=== PATIENT | male | born 1950 | race African-American/Black ===

== ENCOUNTER 2017-07-14 15:09 | Emergency (ER) | payer MEDICAID ==
[~2017-07-14] VITALS: Ht 180.3 cm; Wt 80.0 kg
[~2017-07-14 15:09] MED LIST: ACET-2178 PO; FOLI-43 PO; LISI-604 PO; METO25TA6 PO; MULT-1146 PO; RISP05 PO; TRAM50TA3 PO
[2017-07-14] MEDS ORDERED: SODIUM CHLORIDE 0.9% 1,000 ML IV ONE ×2 (15:36)
[2017-07-14] MEDS ORDERED: ASPIRIN 325MG TABLET PO ONE (15:45)
[2017-07-14 16:37] LABS: EOSINOPHILS % 4.7 % (0.0-5.0); HEMATOCRIT. 30.2 % (42.0-52.0); LYMPHOCYTES % 44.2 % (20.0-50.0); MEAN CORPUSCULAR HEMOGLOBIN 27.4 pg (28.0-32.0); MEAN CORPUSCULAR VOLUME 82.5 fL (80.0-94.0); MEAN PLATELET VOLUME 8.4 fl (7.4-10.4); MONOCYTES % 9.5 % (2.0-8.0); NEUTROPHILS % 39.6 % (40.0-76.0); PLATELET 179 x1000/uL (130-400); RED BLOOD CELL COUNT 3.66 mill/uL (4.7-6.1); RED CELL DISTRIBUTION WIDTH 19.5 % (11.6-14.6)
[2017-07-14 16:41] LABS: PROTHROMBIN TIME 10.7 sec (9.4-11.6)
[2017-07-14 16:51] LABS: CARBON DIOXIDE 30 mEq/L (21-32); CHLORIDE 98 mEq/L (98-107)
[2017-07-14 16:52] LABS: TROPONIN I < 0.02 ng/mL (0.00-0.04)
[2017-07-14 16:58] LABS: ETHANOL BLOOD 360 mg/dL
[2017-07-14] MEDS ORDERED: ACETAMINOPHEN 325MG TABLET PO ONE (18:15)
[2017-07-14 18:23] LABS: *AMPHETAMINES SCREEN URINE NEGATIVE (NEGATIVE); *BARBITURATES SCREEN URINE NEGATIVE (NEGATIVE); *BENZODIAZEPINES SCREEN URINE NEGATIVE (NEGATIVE); *COCAINE SCREEN URINE NEGATIVE (NEGATIVE); CANNABINOID URINE SCREEN NEGATIVE (NEGATIVE); METHADONE URINE SCREEN NEGATIVE (NEGATIVE); OPIATES URINE SCREEN NEGATIVE (NEGATIVE); PHENCYCLIDINE URINE SCREEN NEGATIVE (NEGATIVE)
[2017-07-14 21:20] VITALS: BP 147/84
== END 2017-07-14 21:59 | disposition home or self-care (01) ==
LOC: ER 15:26
DX: R07.9 Chest pain, unspecified (principal); F10.129 Alcohol abuse with intoxication, unspecified; Y90.8 Blood alcohol level of 240 mg/100 ml or more; E16.2 Hypoglycemia, unspecified; D64.9 Anemia, unspecified; I10 Essential (primary) hypertension; J45.909 Unspecified asthma, uncomplicated
CPT/HCPCS: 36415; 71010; 80053; 80305; 82962; 83690; 84484; 85025; 85610; 93005; 96360; 96361; 99285; G0482; J7030

== ENCOUNTER 2018-06-21 13:58 | Emergency (ER) | payer MEDICARE, MEDICAID ==
[~2018-06-21] VITALS: Ht 175.3 cm; Wt 55.0 kg
[2018-06-21] MEDS ORDERED: ACETAMINOPHEN WITH CODEINE 300/30MG TABLET PO ONE (14:30)
[2018-06-21 15:38] LABS: HEMOGLOBIN. 8.7 g/dL (14.0-18.0); MEAN CORPUSCULAR VOLUME 77.7 fL (80.0-94.0); MEAN PLATELET VOLUME 8.7 fl (7.4-10.4); PLATELET 210 x1000/uL (130-400); RED BLOOD CELL COUNT 3.47 mill/uL (4.7-6.1); RED CELL DISTRIBUTION WIDTH 22.7 % (11.6-14.6)
[2018-06-21 15:41] LABS: CHLORIDE 93 mEq/L (98-107)
[2018-06-21 16:14] LABS: PLATELET ESTIMATE NORMAL
[2018-06-21 16:17] VITALS: BP 152/88
== END 2018-06-21 16:25 | disposition home or self-care (01) ==
LOC: ER 14:49
DX: M54.12 Radiculopathy, cervical region (principal); D64.9 Anemia, unspecified
CPT/HCPCS: 36415; 72125; 80053; 85025; 99285

== ENCOUNTER 2018-08-05 14:25 | Inpatient (IN) | payer MEDICARE, MEDICAID ==
[~2018-08-05] VITALS: Ht 177.8 cm; Wt 57.8 kg
[2018-08-05 15:54] LABS: HEMATOCRIT. 23.5 % (42.0-52.0); HEMOGLOBIN. 7.6 g/dL (14.0-18.0); MEAN CORPUSCULAR HEMOGLOBIN 22.8 pg (28.0-32.0); MEAN CORPUSCULAR VOLUME 70.9 fL (80.0-94.0); MEAN PLATELET VOLUME 7.4 fl (7.4-10.4); PLATELET 305 x1000/uL (130-400); RED BLOOD CELL COUNT 3.32 mill/uL (4.7-6.1); RED CELL DISTRIBUTION WIDTH 23.3 % (11.6-14.6)
[2018-08-05 15:59] LABS: CHLORIDE 84 mEq/L (98-107)
[2018-08-05 16:03] LABS: PARTIAL THROMBOPLASTIN TIME 29.7 sec (23.4-31.0); PROTHROMBIN TIME 10.5 sec (9.1-11.1)
[2018-08-05 16:05] LABS: PHOSPHORUS 3.3 mg/dL (2.5-4.9)
[2018-08-05 16:28] LABS: BG CARBOXYHEMOGLOBIN 0.6 % (0.5-1.5); BG DEOXYHEMOGLOBIN 4.7 % (0.0-5.0); BG FRACTION INSPIRED OXYGEN 21; BG HCO3 ACT 23.8 mmol/L (22.0-26.0); BG METHEMOGLOBIN 0.3 % (0.0-1.5); BG OXYGEN SATURATION 95.3 % (92.0-98.5); BG OXYHEMOGLOBIN 94.4 % (94.0-97.0); BG PCO2 34.5 mmHg (35.0-45.0); BG PH 7.456 (7.350-7.450); BG PO2 87.1 mmHg (75.0-100.0); BG SAMPLE SITE RIGHT BRACHIAL; BG TOTAL HEMOGLOBIN 8.2 g/dL (12.0-18.0); BG VENT MODE ROOM AIR
[2018-08-05 16:29] LABS: PLATELET ESTIMATE NORMAL; TOTAL IRON BINDING CAPACITY 388 ug/dL (250-450)
[2018-08-05] MEDS ORDERED: MAGNESIUM/ALUMINUM HYDROXIDE/SIMETHICONE 30ML UDC PO PRN (17:30)
[2018-08-05] MEDS ORDERED: ACETAMINOPHEN 650MG/20.3ML UDC GT PRN (17:30)
[2018-08-05] MEDS ORDERED: ACETAMINOPHEN 650MG SUPP PR PRN (17:30)
[2018-08-05] MEDS ORDERED: HYDROCODONE/ACETAMINOPHEN 5/325MG TABLET PO PRN (17:30)
[2018-08-05] MEDS ORDERED: ACETAMINOPHEN 325MG TABLET PO PRN (17:30)
[2018-08-05 18:00] LABS: CLARITY URINE CLOUDY (CLEAR); COLOR URINE YELLOW (YELLOW); KETONES URINE NEGATIVE (NEGATIVE); LEUKOCYTE ESTERASE URINE NEGATIVE (NEGATIVE); NITRITE URINE NEGATIVE (NEGATIVE); OCCULT BLOOD URINE NEGATIVE (NEGATIVE); PROTEIN URINE NEGATIVE (NEGATIVE); SPECIFIC GRAVITY URINE 1.006 (1.005-1.030); UROBILINOGEN URINE 0.2 E.U./dL (0.2-1.0)
[2018-08-05 18:02] LABS: FOLIC ACID (FOLATE) SERUM 13.6 ng/mL (>5.38)
[2018-08-05 18:14] LABS: *BENZODIAZEPINES SCREEN URINE NEGATIVE (NEGATIVE); *COCAINE SCREEN URINE NEGATIVE (NEGATIVE); METHADONE URINE SCREEN NEGATIVE (NEGATIVE)
[2018-08-05 18:15] LABS: *AMPHETAMINES SCREEN URINE NEGATIVE (NEGATIVE); *BARBITURATES SCREEN URINE NEGATIVE (NEGATIVE); CANNABINOID URINE SCREEN NEGATIVE (NEGATIVE); OPIATES URINE SCREEN NEGATIVE (NEGATIVE); PHENCYCLIDINE URINE SCREEN NEGATIVE (NEGATIVE)
[2018-08-05 22:49] VITALS: BP 166/70
[2018-08-05 23:28] LABS: CHLORIDE 86 mEq/L (98-107)
[2018-08-05 23:37] LABS: CREATINE KINASE 76 IU/L (39-308)
[2018-08-05 23:39] LABS: CREATINE KINASE MB FRACTION < 1.0 ng/mL (0.5-3.6)
[2018-08-06] VITALS: BP 160/72
[2018-08-06 04:00] VITALS: BP 145/76
[2018-08-06 06:47] LABS: HEMATOCRIT. 25.6 % (42.0-52.0); HEMOGLOBIN. 8.3 g/dL (14.0-18.0); MEAN PLATELET VOLUME 8.5 fl (7.4-10.4); PLATELET 307 x1000/uL (130-400); RED BLOOD CELL COUNT 3.61 mill/uL (4.7-6.1); RED CELL DISTRIBUTION WIDTH 23.4 % (11.6-14.6)
[2018-08-06 06:58] LABS: CHLORIDE 85 mEq/L (98-107)
[2018-08-06 07:24] LABS: LDL CHOLESTEROL 83 mg/dL (5-100)
[2018-08-06 07:25] LABS: CREATINE KINASE 80 IU/L (39-308); T4 FREE 1.11 ng/dL (0.76-1.46)
[2018-08-06 07:26] LABS: HDL CHOLESTEROL 51 mg/dL (40-59)
[2018-08-06 07:29] LABS: CREATINE KINASE MB FRACTION < 1.0 ng/mL (0.5-3.6)
[2018-08-06 08:00] VITALS: BP 128/68
[2018-08-06] MEDS: SODIUM CHLORIDE 0.9% 1,000 ML IV SCH ×2 (11:46→21:39)
[2018-08-06 12:00] VITALS: BP 150/70
[2018-08-06 12:52] LABS: PLATELET ESTIMATE NORMAL
[2018-08-06] MEDS ORDERED: TRAMADOL 50MG TABLET PO PRN (14:00)
[2018-08-06] MEDS: LISINOPRIL 20MG TABLET PO SCH (15:33)
[2018-08-06] MEDS: FOLIC ACID 1MG TABLET PO SCH (15:34)
[2018-08-06] MEDS: METOPROLOL TARTRATE 25MG TABLET PO SCH (15:34)
[2018-08-06 20:00] VITALS: BP 124/66
[2018-08-06] MEDS: RISPERIDONE 0.5MG TABLET PO SCH (21:43)
[2018-08-06 22:07] LABS: SODIUM URINE RANDOM 15 mEq/L
[2018-08-07] VITALS: BP 134/68
[2018-08-07 04:00] VITALS: BP 140/69
[2018-08-07] MEDS: ONDANSETRON HCL 4MG/2ML INJ IV PRN (05:09)
[2018-08-07 08:00] VITALS: BP 127/68
[2018-08-07] MEDS: SODIUM CHLORIDE 0.9% 1,000 ML IV SCH ×2 (09:18→18:23)
[2018-08-07] MEDS: FOLIC ACID 1MG TABLET PO SCH (09:20)
[2018-08-07] MEDS: METOPROLOL TARTRATE 25MG TABLET PO SCH (09:20)
[2018-08-07] MEDS: LISINOPRIL 20MG TABLET PO SCH (09:20)
[2018-08-07 10:53] LABS: HEMATOCRIT. 25.6 % (42.0-52.0); HEMOGLOBIN. 8.1 g/dL (14.0-18.0); MEAN CORPUSCULAR HEMOGLOBIN 22.7 pg (28.0-32.0); MEAN CORPUSCULAR VOLUME 71.6 fL (80.0-94.0); MEAN PLATELET VOLUME 8.5 fl (7.4-10.4); PLATELET 307 x1000/uL (130-400); RED BLOOD CELL COUNT 3.57 mill/uL (4.7-6.1); RED CELL DISTRIBUTION WIDTH 22.8 % (11.6-14.6)
[2018-08-07 11:18] LABS: CHLORIDE 95 mEq/L (98-107)
[2018-08-07 11:24] LABS: PHOSPHORUS 3.5 mg/dL (2.5-4.9)
[2018-08-07 11:28] LABS: AMYLASE 115 IU/L (25-115)
[2018-08-07 12:00] VITALS: BP 133/63
[2018-08-07 15:02] LABS: PLATELET ESTIMATE NORMAL
[2018-08-07 16:00] VITALS: BP 146/59
[2018-08-07] MEDS: RISPERIDONE 0.5MG TABLET PO SCH (20:32)
[2018-08-08] VITALS: BP 158/72
[2018-08-08 04:00] VITALS: BP 158/71
[2018-08-08] MEDS: SODIUM CHLORIDE 0.9% 1,000 ML IV SCH ×3 (04:50→20:10)
[2018-08-08 07:20] LABS: BASOPHILS % 0.7 % (0.0-2.0); EOSINOPHILS % 3.8 % (0.0-5.0); HEMATOCRIT. 22.5 % (42.0-52.0); HEMOGLOBIN. 7.2 g/dL (14.0-18.0); MEAN CORPUSCULAR HEMOGLOBIN 22.8 pg (28.0-32.0); MEAN CORPUSCULAR VOLUME 71.3 fL (80.0-94.0); MEAN PLATELET VOLUME 8.2 fl (7.4-10.4); MONOCYTES % 10.1 % (2.0-8.0); NEUTROPHILS % 62.4 % (40.0-76.0); PLATELET 278 x1000/uL (130-400); RED BLOOD CELL COUNT 3.15 mill/uL (4.7-6.1); RED CELL DISTRIBUTION WIDTH 22.5 % (11.6-14.6)
[2018-08-08 07:44] LABS: CHLORIDE 97 mEq/L (98-107)
[2018-08-08] MEDS: LISINOPRIL 20MG TABLET PO SCH (09:12)
[2018-08-08] MEDS: FOLIC ACID 1MG TABLET PO SCH (09:12)
[2018-08-08] MEDS: METOPROLOL TARTRATE 25MG TABLET PO SCH (09:12)
[2018-08-08 12:00] VITALS: BP 142/70
[2018-08-08 16:00] VITALS: BP 166/76
[2018-08-08] MEDS: DOCUSATE SODIUM 100MG CAPSULE PO SCH (17:46)
[2018-08-08] MEDS: FERROUS SULFATE 325MG TABLET PO SCH (17:46)
[2018-08-08] MEDS: ASCORBIC ACID 500 MG TABLET PO SCH ×2 (17:47→20:09)
[2018-08-08 18:20] VITALS: BP 157/77
[2018-08-08 20:00] VITALS: BP 152/73
[2018-08-08] MEDS: ONDANSETRON HCL 4MG/2ML INJ IV PRN (20:09)
[2018-08-08] MEDS: RISPERIDONE 0.5MG TABLET PO SCH (20:09)
[2018-08-09] VITALS (9 sets, daily range): BP systolic 134–157; BP diastolic 67–78
[2018-08-09 07:44] LABS: HEMATOCRIT. 21.9 % (42.0-52.0); MEAN CORPUSCULAR HEMOGLOBIN 22.5 pg (28.0-32.0); MEAN CORPUSCULAR VOLUME 70.6 fL (80.0-94.0); MEAN PLATELET VOLUME 8.6 fl (7.4-10.4); PLATELET 252 x1000/uL (130-400); RED CELL DISTRIBUTION WIDTH 22.5 % (11.6-14.6)
[2018-08-09 07:55] LABS: CHLORIDE 93 mEq/L (98-107)
[2018-08-09] MEDS: FERROUS SULFATE 325MG TABLET PO SCH ×3 (08:59→17:04)
[2018-08-09] MEDS: METOPROLOL TARTRATE 25MG TABLET PO SCH (09:00)
[2018-08-09] MEDS: FOLIC ACID 1MG TABLET PO SCH (09:00)
[2018-08-09] MEDS: DOCUSATE SODIUM 100MG CAPSULE PO SCH (09:00)
[2018-08-09] MEDS: ASCORBIC ACID 500 MG TABLET PO SCH ×2 (09:00→20:54)
[2018-08-09] MEDS: LISINOPRIL 20MG TABLET PO SCH (09:00)
[2018-08-09] MEDS: DEMECLOCYCLINE HCL 300MG TABLET PO SCH ×2 (12:32→20:54)
[2018-08-09 12:58] LABS: PLATELET ESTIMATE NORMAL
[2018-08-09] MEDS: RISPERIDONE 0.5MG TABLET PO SCH (20:54)
[2018-08-09] MEDS: PANTOPRAZOLE SODIUM 40 MG/VIAL IV SCH (20:54)
[2018-08-10] VITALS (9 sets, daily range): BP systolic 132–157; BP diastolic 64–82
[2018-08-10 07:19] LABS: INR 1.1; PARTIAL THROMBOPLASTIN TIME 31.3 sec (23.4-31.0); PROTHROMBIN TIME 11.3 sec (9.1-11.1)
[2018-08-10 07:33] LABS: HEMATOCRIT. 24.6 % (42.0-52.0); HEMOGLOBIN. 8.2 g/dL (14.0-18.0); MEAN CORPUSCULAR HEMOGLOBIN 23.9 pg (28.0-32.0); MEAN CORPUSCULAR VOLUME 71.7 fL (80.0-94.0); MEAN PLATELET VOLUME 9.4 fl (7.4-10.4); PLATELET 231 x1000/uL (130-400); RED BLOOD CELL COUNT 3.44 mill/uL (4.7-6.1); RED CELL DISTRIBUTION WIDTH 22.5 % (11.6-14.6)
[2018-08-10 08:48] LABS: CHLORIDE 92 mEq/L (98-107)
[2018-08-10 08:56] LABS: AMYLASE 88 IU/L (25-115)
[2018-08-10 08:59] LABS: PHOSPHORUS 3.3 mg/dL (2.5-4.9)
[2018-08-10] MEDS: PANTOPRAZOLE SODIUM 40 MG/VIAL IV SCH ×2 (09:01→21:37)
[2018-08-10] MEDS: METOPROLOL TARTRATE 25MG TABLET PO SCH (09:01)
[2018-08-10] MEDS: FERROUS SULFATE 325MG TABLET PO SCH ×3 (09:01→17:49)
[2018-08-10] MEDS: LISINOPRIL 20MG TABLET PO SCH (09:01)
[2018-08-10] MEDS: DOCUSATE SODIUM 100MG CAPSULE PO SCH (09:01)
[2018-08-10] MEDS: FOLIC ACID 1MG TABLET PO SCH (09:01)
[2018-08-10] MEDS: DEMECLOCYCLINE HCL 300MG TABLET PO SCH ×2 (09:01→21:37)
[2018-08-10] MEDS: ASCORBIC ACID 500 MG TABLET PO SCH ×2 (09:03→21:37)
[2018-08-10] MEDS: SODIUM CHLORIDE 1000MG TABLET PO SCH ×2 (10:23→21:37)
[2018-08-10 13:08] LABS: PLATELET ESTIMATE NORMAL
[2018-08-10] MEDS ORDERED: SIMETHICONE 40 MG/0.6 ML 30ML ONE (15:07)
[2018-08-10] MEDS ORDERED: FENTANYL CITRATE/PF 50MCG/ML 2ML VIAL ONE (15:42)
[2018-08-10] MEDS ORDERED: MIDAZOLAM HCL 5 MG/5 ML VIAL ONE (15:42)
[2018-08-10] MEDS ORDERED: FENTANYL CITRATE/PF 50MCG/ML 2ML VIAL IV PRN (15:43)
[2018-08-10] MEDS ORDERED: MIDAZOLAM HCL 5 MG/5 ML VIAL IV PRN (15:44)
[2018-08-10] MEDS: ONDANSETRON HCL 4MG/2ML INJ IV PRN (21:37)
[2018-08-10] MEDS: RISPERIDONE 0.5MG TABLET PO SCH (21:37)
[2018-08-11] VITALS: BP 135/73
[2018-08-11 04:00] VITALS: BP 129/84
[2018-08-11] MEDS: ONDANSETRON HCL 4MG/2ML INJ IV PRN ×2 (05:21→21:01)
[2018-08-11 07:09] LABS: HEMATOCRIT. 30.7 % (42.0-52.0); HEMOGLOBIN. 10.1 g/dL (14.0-18.0); MEAN CORPUSCULAR HEMOGLOBIN 23.9 pg (28.0-32.0); MEAN PLATELET VOLUME 9.1 fl (7.4-10.4); PLATELET 304 x1000/uL (130-400); RED BLOOD CELL COUNT 4.21 mill/uL (4.7-6.1); RED CELL DISTRIBUTION WIDTH 22.6 % (11.6-14.6)
[2018-08-11 07:18] LABS: CHLORIDE 94 mEq/L (98-107)
[2018-08-11 07:30] LABS: PHOSPHORUS 3.7 mg/dL (2.5-4.9)
[2018-08-11 08:00] VITALS: BP 139/77
[2018-08-11] MEDS: SODIUM CHLORIDE 1000MG TABLET PO SCH ×2 (08:33→20:46)
[2018-08-11] MEDS: FERROUS SULFATE 325MG TABLET PO SCH ×3 (08:33→17:48)
[2018-08-11] MEDS: ASCORBIC ACID 500 MG TABLET PO SCH ×2 (08:33→20:37)
[2018-08-11] MEDS: FOLIC ACID 1MG TABLET PO SCH (08:33)
[2018-08-11] MEDS: LISINOPRIL 20MG TABLET PO SCH (08:33)
[2018-08-11] MEDS: METOPROLOL TARTRATE 25MG TABLET PO SCH (08:34)
[2018-08-11] MEDS: DEMECLOCYCLINE HCL 300MG TABLET PO SCH (08:40)
[2018-08-11] MEDS: DOCUSATE SODIUM 100MG CAPSULE PO SCH (08:41)
[2018-08-11 12:04] VITALS: BP 133/68
[2018-08-11] MEDS ORDERED: LOPERAMIDE HCL 2MG CAPSULE PO PRN (14:30)
[2018-08-11 16:00] VITALS: BP 139/77
[2018-08-11 19:11] LABS: PLATELET ESTIMATE NORMAL
[2018-08-11 20:00] VITALS: BP 156/71
[2018-08-11] MEDS: RISPERIDONE 0.5MG TABLET PO SCH (20:37)
[2018-08-12] VITALS: BP 158/71
[2018-08-12 03:40] VITALS: BP 152/69
[2018-08-12 04:12] LABS: QFT MITOGEN VALUE 3.16 IU/mL (.); QFT TB AG MINUS NIL VALUE 0.03 IU/mL (.); QFT TB GOLD PLUS Negative (Negative); QFT TB1 AG VALUE 0.08 IU/mL (.)
[2018-08-12 07:33] LABS: HEMATOCRIT. 25.8 % (42.0-52.0); HEMOGLOBIN. 8.5 g/dL (14.0-18.0); MEAN CORPUSCULAR HEMOGLOBIN 23.8 pg (28.0-32.0); MEAN CORPUSCULAR VOLUME 72.2 fL (80.0-94.0); MEAN PLATELET VOLUME 8.4 fl (7.4-10.4); PLATELET 261 x1000/uL (130-400); RED BLOOD CELL COUNT 3.57 mill/uL (4.7-6.1); RED CELL DISTRIBUTION WIDTH 23.1 % (11.6-14.6)
[2018-08-12 08:00] VITALS: BP 150/79
[2018-08-12] MEDS: FOLIC ACID 1MG TABLET PO SCH (08:29)
[2018-08-12] MEDS: ASCORBIC ACID 500 MG TABLET PO SCH (08:29)
[2018-08-12] MEDS: SODIUM CHLORIDE 1000MG TABLET PO SCH (08:29)
[2018-08-12] MEDS: METOPROLOL TARTRATE 25MG TABLET PO SCH (08:29)
[2018-08-12] MEDS: FERROUS SULFATE 325MG TABLET PO SCH ×3 (08:29→17:16)
[2018-08-12] MEDS: LISINOPRIL 20MG TABLET PO SCH (08:31)
[2018-08-12] MEDS: DOCUSATE SODIUM 100MG CAPSULE PO SCH (08:38)
[2018-08-12 08:53] LABS: CHLORIDE 98 mEq/L (98-107)
[2018-08-12 09:02] LABS: PHOSPHORUS 3.3 mg/dL (2.5-4.9)
[2018-08-12 11:48] LABS: PLATELET ESTIMATE NORMAL
[2018-08-12 12:00] VITALS: BP 156/71
[2018-08-12 16:00] VITALS: BP 153/71
[2018-08-12 17:57] VITALS: BP 157/75
== END 2018-08-12 19:17 | disposition home or self-care (01) | DRG 374 ==
LOC: ER 15:29 → 7WST 16:11 → ENRESERV 19:57
PROVIDERS: ADMIT Internal Medicine; ATTEND Internal Medicine
PROC: 30233N1 Transfusion of Nonautologous Red Blood Cells into Peripheral Vein, Percutaneous Approach (ICD-10-PCS; 2018-08-09)
PROC: 0DB68ZX Excision of Stomach, Via Natural or Artificial Opening Endoscopic, Diagnostic (ICD-10-PCS; 2018-08-10)
PROC: 0DB48ZX Excision of Esophagogastric Junction, Via Natural or Artificial Opening Endoscopic, Diagnostic (ICD-10-PCS; principal; 2018-08-10 16:00)
DX: C16.0 Malignant neoplasm of cardia (principal); K85.90 Acute pancreatitis without necrosis or infection, unspecified; E22.2 Syndrome of inappropriate secretion of antidiuretic hormone; E44.0 Moderate protein-calorie malnutrition; N17.9 Acute kidney failure, unspecified; Z68.1 Body mass index [BMI] 19.9 or less, adult; F10.10 Alcohol abuse, uncomplicated; K29.80 Duodenitis without bleeding; J44.9 Chronic obstructive pulmonary disease, unspecified; I10 Essential (primary) hypertension; K44.9 Diaphragmatic hernia without obstruction or gangrene; K29.60 Other gastritis without bleeding; G89.29 Other chronic pain; M25.512 Pain in left shoulder; K22.2 Esophageal obstruction; J45.909 Unspecified asthma, uncomplicated; D50.0 Iron deficiency anemia secondary to blood loss (chronic); K57.30 Diverticulosis of large intestine without perforation or abscess without bleeding; K76.0 Fatty (change of) liver, not elsewhere classified; N40.0 Benign prostatic hyperplasia without lower urinary tract symptoms; Z72.0 Tobacco use; Z82.49 Family history of ischemic heart disease and other diseases of the circulatory system; Z79.899 Other long term (current) drug therapy
CPT/HCPCS: 36415; 36600; 71045; 71250; 74176; 76700; 80048; 80053; 80061; 80305; 81003; 82150; 82270; 82375; 82378; 82533; 82550; 82553; 82570; 82607; 82746; 82805; 83540; 83550; 83690; 83735; 83935; 84100; 84300; 84439; 84443; 84481; 84484; 85025; 85044; 85610; 85730; 86480; 86850; 86900; 86920; 88305; 88312; 88313; 93005; 93970; 97116; 97162; 99285; C9113; J2250; J2405; J3010; J7030; J7040; P9016

== ENCOUNTER 2018-09-29 13:04 | Inpatient (IN) | payer MEDICARE, MEDICAID ==
[~2018-09-29] VITALS: Ht 177.8 cm; Wt 56.7 kg
[2018-09-29 14:36] LABS: HEMATOCRIT. 27.9 % (42.0-52.0); MEAN CORPUSCULAR HEMOGLOBIN 24.3 pg (28.0-32.0); MEAN CORPUSCULAR VOLUME 75.1 fL (80.0-94.0); MEAN PLATELET VOLUME 8.6 fl (7.4-10.4); PLATELET 204 x1000/uL (130-400); RED BLOOD CELL COUNT 3.71 mill/uL (4.7-6.1); RED CELL DISTRIBUTION WIDTH 26.1 % (11.6-14.6)
[2018-09-29 14:42] LABS: CHLORIDE 90 mEq/L (98-107)
[2018-09-29 14:49] LABS: ETHANOL BLOOD < 10 mg/dL
[2018-09-29] MEDS ORDERED: IOHEXOL-300 100 ML BOTTLE ONE (16:07)
[2018-09-29 16:23] LABS: CLARITY URINE CLEAR (CLEAR); COLOR URINE DARK YELLOW (YELLOW); KETONES URINE TRACE (NEGATIVE); LEUKOCYTE ESTERASE URINE NEGATIVE (NEGATIVE); NITRITE URINE NEGATIVE (NEGATIVE); OCCULT BLOOD URINE NEGATIVE (NEGATIVE); PROTEIN URINE 2+ (NEGATIVE); SPECIFIC GRAVITY URINE 1.024 (1.005-1.030)
[2018-09-29 16:26] LABS: PLATELET ESTIMATE NORMAL
[2018-09-29 16:37] LABS: *AMPHETAMINES SCREEN URINE NEGATIVE (NEGATIVE); *BARBITURATES SCREEN URINE NEGATIVE (NEGATIVE); *BENZODIAZEPINES SCREEN URINE NEGATIVE (NEGATIVE); *COCAINE SCREEN URINE NEGATIVE (NEGATIVE)
[2018-09-29 16:38] LABS: CANNABINOID URINE SCREEN NEGATIVE (NEGATIVE); METHADONE URINE SCREEN NEGATIVE (NEGATIVE); OPIATES URINE SCREEN NEGATIVE (NEGATIVE); PHENCYCLIDINE URINE SCREEN NEGATIVE (NEGATIVE)
[2018-09-29 18:38] VITALS: BP 102/70
[2018-09-29] MEDS ORDERED: CLONIDINE 0.1MG TABLET PO PRN (18:45)
[2018-09-29] MEDS ORDERED: ACETAMINOPHEN 325MG TABLET PO PRN (18:45)
[2018-09-29] MEDS ORDERED: ACETAMINOPHEN 650MG/20.3ML UDC GT PRN (18:45)
[2018-09-29] MEDS ORDERED: ACETAMINOPHEN 650MG SUPP PR PRN (18:45)
[2018-09-29] MEDS ORDERED: DIPHENHYDRAMINE 50MG/ML VIAL IV PRN (18:45)
[2018-09-29] MEDS ORDERED: MAGNESIUM/ALUMINUM HYDROXIDE/SIMETHICONE 30ML UDC PO PRN (18:45)
[2018-09-29] MEDS ORDERED: NA PHOS,M-B/NA PHOS,DI-BA ENEMA 118ML PR PRN (18:45)
[2018-09-29] MEDS ORDERED: HYDROCODONE/ACETAMINOPHEN 5/325MG TABLET PO PRN (18:45)
[2018-09-29] MEDS ORDERED: IPRATROPIUM/ALBUTEROL 0.5-3(2.5)MG/3ML NEB INH PRN (18:45)
[2018-09-29] MEDS ORDERED: ONDANSETRON HCL 4MG/2ML INJ IV PRN (18:45)
[2018-09-29 20:00] VITALS: BP 120/62
[2018-09-29] MEDS ORDERED: INFLUENZA VIRUS VACCINE(AFLURIA) 0.5ML SYR IM ONE (21:00)
[2018-09-29] MEDS: SODIUM CHLORIDE 0.9% 1,000 ML IV SCH (21:08)
[2018-09-29] MEDS: ENOXAPARIN 40MG/0.4ML SYR SUBCUT SCH (21:09)
[2018-09-29] MEDS: SODIUM CHLORIDE 0.9% INJ 3ML FLUSH IVF SCH (21:09)
[2018-09-29 22:22] VITALS: BP 120/62
[2018-09-29] MEDS ORDERED: ASCO500C15 PO (23:07)
[2018-09-29] MEDS ORDERED: FERR220S12 PO (23:07)
[2018-09-29] MEDS ORDERED: TIOT18CA3 IH (23:07)
[2018-09-29] MEDS ORDERED: PROC10TA17 PO (23:07)
[2018-09-29] MEDS ORDERED: [UNRECOGNIZED DRUG - MIXTURE] PO (23:07)
[2018-09-29] MEDS ORDERED: ALBU18HF2 IH (23:07)
[2018-09-29] MEDS ORDERED: OMEP40CA34 PO (23:07)
[2018-09-29] MEDS ORDERED: ADVIR INH (23:07)
[2018-09-30] VITALS: BP 98/60
[2018-09-30 00:46] LABS: CREATINE KINASE 55 IU/L (39-308)
[2018-09-30 00:47] LABS: CREATINE KINASE MB FRACTION < 1.0 ng/mL (0.5-3.6)
[2018-09-30 04:00] VITALS: BP 104/66
[2018-09-30] MEDS: SODIUM CHLORIDE 0.9% INJ 3ML FLUSH IVF SCH ×3 (05:57→21:08)
[2018-09-30] MEDS ORDERED: DIGOXIN 500MCG/2ML AMP IV NR (07:30)
[2018-09-30 08:00] VITALS: BP_SYST 102; BP_SYST 103; BP_DIAS 61
[2018-09-30 09:44] LABS: BASOPHILS % 0.6 % (0.0-2.0); EOSINOPHILS % 0.9 % (0.0-5.0); HEMATOCRIT. 23.2 % (42.0-52.0); HEMOGLOBIN. 7.7 g/dL (14.0-18.0); MEAN CORPUSCULAR HEMOGLOBIN 24.5 pg (28.0-32.0); MEAN CORPUSCULAR VOLUME 74.2 fL (80.0-94.0); MEAN PLATELET VOLUME 9.1 fl (7.4-10.4); MONOCYTES % 8.9 % (2.0-8.0); NEUTROPHILS % 62.6 % (40.0-76.0); PLATELET 184 x1000/uL (130-400); RED BLOOD CELL COUNT 3.12 mill/uL (4.7-6.1); RED CELL DISTRIBUTION WIDTH 26.4 % (11.6-14.6)
[2018-09-30] MEDS: SODIUM CHLORIDE 0.9% 1,000 ML IV SCH (09:51)
[2018-09-30] MEDS ORDERED: DIGOXIN 125MCG TABLET PO NR (10:00)
[2018-09-30 11:55] LABS: CHLORIDE 96 mEq/L (98-107)
[2018-09-30 12:00] VITALS: BP_SYST 116; BP_SYST 124; BP_SYST 92; BP_DIAS 61; BP_DIAS 64; BP_DIAS 68
[2018-09-30 12:26] LABS: CREATINE KINASE 52 IU/L (39-308)
[2018-09-30 12:27] LABS: LDL CHOLESTEROL 86 mg/dL (5-100)
[2018-09-30 12:29] LABS: HDL CHOLESTEROL 53 mg/dL (40-59)
[2018-09-30 12:31] LABS: CREATINE KINASE MB FRACTION < 1.0 ng/mL (0.5-3.6)
[2018-09-30 16:00] VITALS: BP 117/65
[2018-09-30] MEDS: GUAIFENESIN-DM 200MG-20MG/10ML UDC PO PRN ×2 (16:08→21:07)
[2018-09-30] MEDS ORDERED: IOHEXOL-350 100 ML BOTTLE ONE (17:32)
[2018-09-30 20:00] VITALS: BP 136/74
[2018-09-30] MEDS: ENOXAPARIN 40MG/0.4ML SYR SUBCUT SCH (21:04)
[2018-10-01] VITALS (11 sets, daily range): BP systolic 112–152; BP diastolic 63–87
[2018-10-01] MEDS: SODIUM CHLORIDE 0.9% INJ 3ML FLUSH IVF SCH ×3 (05:51→21:14)
[2018-10-01] MEDS: SODIUM CHLORIDE 0.9% 1,000 ML IV SCH ×2 (10:45→13:03)
[2018-10-01 11:24] LABS: BASOPHILS % 0.8 % (0.0-2.0); EOSINOPHILS % 2.1 % (0.0-5.0); LYMPHOCYTES % 21.8 % (20.0-50.0); MEAN CORPUSCULAR HEMOGLOBIN 24.6 pg (28.0-32.0); MEAN CORPUSCULAR VOLUME 76.6 fL (80.0-94.0); MEAN PLATELET VOLUME 9.1 fl (7.4-10.4); MONOCYTES % 9.8 % (2.0-8.0); NEUTROPHILS % 65.5 % (40.0-76.0); PLATELET 139 x1000/uL (130-400); RED BLOOD CELL COUNT 2.67 mill/uL (4.7-6.1); RED CELL DISTRIBUTION WIDTH 25.8 % (11.6-14.6)
[2018-10-01 11:25] LABS: CHLORIDE 98 mEq/L (98-107)
[2018-10-01 11:30] LABS: HEMATOCRIT. 20.4 % (42.0-52.0); HEMOGLOBIN. 6.6 g/dL (14.0-18.0)
[2018-10-01] MEDS: GUAIFENESIN-DM 200MG-20MG/10ML UDC PO PRN (13:02)
[2018-10-02] VITALS (9 sets, daily range): BP systolic 143–155; BP diastolic 66–81
[2018-10-02 04:59] LABS: PROTHROMBIN TIME 10.5 sec (9.1-11.1)
[2018-10-02] MEDS: SODIUM CHLORIDE 0.9% INJ 3ML FLUSH IVF SCH (05:29)
[2018-10-02] MEDS: SODIUM CHLORIDE 0.9% 1,000 ML IV SCH (05:30)
[2018-10-02] MEDS: GUAIFENESIN-DM 200MG-20MG/10ML UDC PO PRN (05:31)
== END 2018-10-02 14:50 | disposition home or self-care (01) | DRG 375 ==
LOC: ER 13:04 → EDBEDREQ 16:20 → EDBEDREQTM 16:45 → ENRESERV 17:19 → CANRESERV 17:19 → 8WST 18:17
PROVIDERS: ADMIT Family Medicine; ATTEND Family Medicine
PROC: 30233N1 Transfusion of Nonautologous Red Blood Cells into Peripheral Vein, Percutaneous Approach (ICD-10-PCS; principal; 2018-10-01)
DX: C16.0 Malignant neoplasm of cardia (principal); Z68.1 Body mass index [BMI] 19.9 or less, adult; E44.1 Mild protein-calorie malnutrition; J45.909 Unspecified asthma, uncomplicated; D50.9 Iron deficiency anemia, unspecified; I95.9 Hypotension, unspecified; D63.8 Anemia in other chronic diseases classified elsewhere; E11.9 Type 2 diabetes mellitus without complications; I25.10 Atherosclerotic heart disease of native coronary artery without angina pectoris; J44.9 Chronic obstructive pulmonary disease, unspecified; K57.30 Diverticulosis of large intestine without perforation or abscess without bleeding; D63.0 Anemia in neoplastic disease; G31.9 Degenerative disease of nervous system, unspecified; R79.1 Abnormal coagulation profile; I11.9 Hypertensive heart disease without heart failure; K44.9 Diaphragmatic hernia without obstruction or gangrene; K80.20 Calculus of gallbladder without cholecystitis without obstruction; K29.80 Duodenitis without bleeding; N28.1 Cyst of kidney, acquired; Z79.899 Other long term (current) drug therapy; Z82.49 Family history of ischemic heart disease and other diseases of the circulatory system
CPT/HCPCS: 36415; 71045; 71275; 74177; 80061; 80305; 82550; 82553; 84484; 85014; 85018; 85049; 85379; 85384; 86850; 86900; 86920; 87070; 93005; 93306; 93970; 96361; 96374; 99285; G0482; J1160; J1650; J2405; J7030; J7040; P9016; Q9967

== ENCOUNTER 2019-07-15 11:07 | Inpatient (IN) | payer MEDICARE, MEDICAID ==
[~2019-07-15] VITALS: Ht 177.8 cm; Wt 60.3 kg
[~2019-07-15 11:07] MED LIST changes: +ADVIR INH; +ALBU18HF2 IH; +ASCO500C15 PO; +FERR220S12 PO; +OMEP40CA34 PO; +PROC10TA17 PO; +TIOT18CA3 IH; -TRAM50TA3 PO; +[UNRECOGNIZED DRUG - MIXTURE] PO
[2019-07-15] MEDS ORDERED: DEXTROSE 50% WATER 50ML SYRINGE IV ONE ×2 (11:19→11:30)
[2019-07-15] MEDS ORDERED: SODIUM CHLORIDE 0.9% 1,000 ML IV ONE (11:22)
[2019-07-15] MEDS ORDERED: DEXTROSE 5% WATER 1,000 ML IV ONE (11:28)
[2019-07-15 11:39] LABS: BASOPHILS % 0.8 % (0.0-2.0); EOSINOPHILS % 0.6 % (0.0-5.0); HEMATOCRIT. 43.6 % (42.0-52.0); HEMOGLOBIN. 14.8 g/dL (14.0-18.0); LYMPHOCYTES % 35.4 % (20.0-50.0); MEAN CORPUSCULAR HEMOGLOBIN 29.7 pg (28.0-32.0); MEAN CORPUSCULAR VOLUME 87.4 fL (80.0-94.0); MEAN PLATELET VOLUME 7.8 fl (7.4-10.4); MONOCYTES % 9.9 % (2.0-8.0); NEUTROPHILS % 53.3 % (40.0-76.0); PLATELET 204 x1000/uL (130-400); RED BLOOD CELL COUNT 4.99 mill/uL (4.7-6.1); RED CELL DISTRIBUTION WIDTH 17.7 % (11.6-14.6)
[2019-07-15 12:10] LABS: CLARITY URINE CLEAR (CLEAR); COLOR URINE YELLOW (YELLOW); KETONES URINE 1+ (NEGATIVE); LEUKOCYTE ESTERASE URINE NEGATIVE (NEGATIVE); NITRITE URINE NEGATIVE (NEGATIVE); OCCULT BLOOD URINE NEGATIVE (NEGATIVE); PROTEIN URINE NEGATIVE (NEGATIVE); SPECIFIC GRAVITY URINE 1.008 (1.005-1.030); UROBILINOGEN URINE 0.2 E.U./dL (0.2-1.0)
[2019-07-15 12:12] LABS: CHLORIDE 83 mEq/L (98-107); INR 1.1; PROTHROMBIN TIME 11.2 sec (9.6-11.0)
[2019-07-15 12:19] LABS: ETHANOL BLOOD 25 mg/dL
[2019-07-15 12:21] LABS: CREATINE KINASE 79 IU/L (39-308)
[2019-07-15 12:55] LABS: *AMPHETAMINES SCREEN URINE NEGATIVE (NEGATIVE); *BARBITURATES SCREEN URINE NEGATIVE (NEGATIVE); *BENZODIAZEPINES SCREEN URINE NEGATIVE (NEGATIVE); *COCAINE SCREEN URINE NEGATIVE (NEGATIVE); METHADONE URINE SCREEN NEGATIVE (NEGATIVE)
[2019-07-15 12:56] LABS: CANNABINOID URINE SCREEN NEGATIVE (NEGATIVE); OPIATES URINE SCREEN NEGATIVE (NEGATIVE); PHENCYCLIDINE URINE SCREEN NEGATIVE (NEGATIVE)
[2019-07-15] MEDS ORDERED: HYDROMORPHONE HCL/PF 2MG/ML CPJ IV PRN (13:15)
[2019-07-15] MEDS ORDERED: NA PHOS,M-B/NA PHOS,DI-BA ENEMA 118ML PR PRN (13:15)
[2019-07-15] MEDS ORDERED: DIPHENHYDRAMINE 50MG/ML VIAL IV PRN (13:15)
[2019-07-15] MEDS ORDERED: DOCUSATE SODIUM 100MG CAPSULE PO PRN (13:15)
[2019-07-15] MEDS ORDERED: MAGNESIUM 2 G PREMIX 50 ML IV ONE (13:15)
[2019-07-15] MEDS ORDERED: IPRATROPIUM/ALBUTEROL 0.5-3(2.5)MG/3ML NEB NEB PRN (13:15)
[2019-07-15] MEDS ORDERED: LORAZEPAM 2MG/ML CPJ IV PRN (13:15)
[2019-07-15] MEDS ORDERED: GUAIFENESIN 200MG/10ML SUGAR FREE UDC PO PRN (13:15)
[2019-07-15] MEDS ORDERED: MAGNESIUM/ALUMINUM HYDROXIDE/SIMETHICONE 30ML UDC PO PRN (13:15)
[2019-07-15] MEDS ORDERED: ACETAMINOPHEN 325MG TABLET PO PRN (13:15)
[2019-07-15 15:30] VITALS: BP 179/101
[2019-07-15] MEDS: CLONIDINE 0.1MG TABLET PO PRN (16:17)
[2019-07-15 18:00] VITALS: BP 149/83
[2019-07-15 18:01] LABS: CHLORIDE 85 mEq/L (98-107)
[2019-07-15 20:00] VITALS: BP 156/89
[2019-07-15] MEDS: DEXT 5%/0.45% NACL 1000ML 1,000 ML IV SCH (21:40)
[2019-07-15 22:00] VITALS: BP 147/87
[2019-07-15] MEDS: ONDANSETRON HCL 4MG/2ML INJ IV PRN (22:48)
[2019-07-16] VITALS (16 sets, daily range): BP systolic 131–167; BP diastolic 66–100
[2019-07-16 06:06] LABS: HEMATOCRIT. 37.1 % (42.0-52.0); HEMOGLOBIN. 12.7 g/dL (14.0-18.0); MEAN CORPUSCULAR HEMOGLOBIN 29.5 pg (28.0-32.0); MEAN PLATELET VOLUME 8.3 fl (7.4-10.4); PLATELET 180 x1000/uL (130-400); RED BLOOD CELL COUNT 4.31 mill/uL (4.7-6.1); RED CELL DISTRIBUTION WIDTH 16.4 % (11.6-14.6)
[2019-07-16 06:41] LABS: CHLORIDE 86 mEq/L (98-107)
[2019-07-16 06:49] LABS: HDL CHOLESTEROL 66 mg/dL (40-59)
[2019-07-16 06:51] LABS: LDL CHOLESTEROL 53 mg/dL (5-100)
[2019-07-16 06:52] LABS: T4 FREE 1.06 ng/dL (0.76-1.46)
[2019-07-16] MEDS: DEXT 5%/0.45% NACL 1000ML 1,000 ML IV SCH (07:40)
[2019-07-16] MEDS: ASPIRIN 81MG EC TABLET PO SCH (09:26)
[2019-07-16] MEDS: BLOOD SUGAR DIAGNOSTIC STRIP TEST SCH ×3 (12:30→21:43)
[2019-07-16] MEDS ORDERED: DEXTROSE 50% WATER 50ML SYRINGE IV PRN (12:30)
[2019-07-16] MEDS: INSULIN LISPRO 100 UNITS/ML SUBCUT SCH ×3 (12:33→21:00)
[2019-07-16 13:12] LABS: PLATELET ESTIMATE NORMAL
[2019-07-17] VITALS (10 sets, daily range): BP systolic 137–159; BP diastolic 71–88
[2019-07-17] MEDS: DEXT 5%/0.45% NACL 1000ML 1,000 ML IV SCH ×2 (04:25→17:46)
[2019-07-17 06:04] LABS: HEMATOCRIT. 36.4 % (42.0-52.0); HEMOGLOBIN. 12.5 g/dL (14.0-18.0); MEAN CORPUSCULAR HEMOGLOBIN 29.8 pg (28.0-32.0); MEAN CORPUSCULAR VOLUME 86.8 fL (80.0-94.0); MEAN PLATELET VOLUME 8.3 fl (7.4-10.4); PLATELET 162 x1000/uL (130-400); RED BLOOD CELL COUNT 4.19 mill/uL (4.7-6.1); RED CELL DISTRIBUTION WIDTH 16.7 % (11.6-14.6)
[2019-07-17 06:22] LABS: CHLORIDE 89 mEq/L (98-107)
[2019-07-17] MEDS: BLOOD SUGAR DIAGNOSTIC STRIP TEST SCH ×4 (07:30→21:00)
[2019-07-17] MEDS: INSULIN LISPRO 100 UNITS/ML SUBCUT SCH ×4 (08:00→21:00)
[2019-07-17] MEDS: ASPIRIN 81MG EC TABLET PO SCH (08:31)
[2019-07-17 10:55] LABS: PLATELET ESTIMATE NORMAL
[2019-07-17] MEDS: METOPROLOL TARTRATE 25MG TABLET PO SCH ×2 (14:30→21:20)
[2019-07-17] MEDS: LISINOPRIL 20MG TABLET PO SCH (14:30)
[2019-07-17 15:28] LABS: SODIUM URINE RANDOM 34 mEq/L
[2019-07-18] VITALS (11 sets, daily range): BP systolic 124–158; BP diastolic 53–78
[2019-07-18 05:50] LABS: HEMATOCRIT. 36.2 % (42.0-52.0); HEMOGLOBIN. 12.3 g/dL (14.0-18.0); MEAN CORPUSCULAR HEMOGLOBIN 29.6 pg (28.0-32.0); MEAN CORPUSCULAR VOLUME 87.2 fL (80.0-94.0); MEAN PLATELET VOLUME 8.3 fl (7.4-10.4); PLATELET 152 x1000/uL (130-400); RED BLOOD CELL COUNT 4.15 mill/uL (4.7-6.1); RED CELL DISTRIBUTION WIDTH 16.4 % (11.6-14.6)
[2019-07-18 06:17] LABS: CHLORIDE 91 mEq/L (98-107)
[2019-07-18] MEDS: INSULIN LISPRO 100 UNITS/ML SUBCUT SCH ×4 (08:00→20:47)
[2019-07-18] MEDS: BLOOD SUGAR DIAGNOSTIC STRIP TEST SCH ×3 (08:22→20:47)
[2019-07-18] MEDS: ASPIRIN 81MG EC TABLET PO SCH (08:22)
[2019-07-18] MEDS: LISINOPRIL 20MG TABLET PO SCH (08:22)
[2019-07-18] MEDS: METOPROLOL TARTRATE 25MG TABLET PO SCH ×2 (08:22→20:50)
[2019-07-18] MEDS: DEXT 5%/0.45% NACL 1000ML 1,000 ML IV SCH (08:23)
[2019-07-18 09:24] LABS: PLATELET ESTIMATE NORMAL
[2019-07-18] MEDS: HYDROCODONE/ACETAMINOPHEN 5/325MG TABLET PO PRN ×2 (11:04→17:53)
[2019-07-18] MEDS: ONDANSETRON HCL 4MG/2ML INJ IV PRN ×2 (11:22→17:47)
[2019-07-19] VITALS: BP 157/72
[2019-07-19] MEDS: DEXT 5%/0.45% NACL 1000ML 1,000 ML IV SCH (03:13)
[2019-07-19 06:34] LABS: CHLORIDE 91 mEq/L (98-107)
[2019-07-19 06:47] LABS: HEMATOCRIT. 36.7 % (42.0-52.0); HEMOGLOBIN. 12.3 g/dL (14.0-18.0); MEAN CORPUSCULAR HEMOGLOBIN 29.5 pg (28.0-32.0); MEAN CORPUSCULAR VOLUME 88.2 fL (80.0-94.0); MEAN PLATELET VOLUME 8.5 fl (7.4-10.4); PLATELET 154 x1000/uL (130-400); RED BLOOD CELL COUNT 4.17 mill/uL (4.7-6.1); RED CELL DISTRIBUTION WIDTH 16.7 % (11.6-14.6)
[2019-07-19] MEDS: INSULIN LISPRO 100 UNITS/ML SUBCUT SCH ×4 (06:47→20:28)
[2019-07-19] MEDS: BLOOD SUGAR DIAGNOSTIC STRIP TEST SCH ×4 (06:47→20:29)
[2019-07-19 08:00] VITALS: BP 110/74
[2019-07-19] MEDS: LISINOPRIL 20MG TABLET PO SCH (09:33)
[2019-07-19] MEDS: METOPROLOL TARTRATE 25MG TABLET PO SCH ×2 (09:33→20:50)
[2019-07-19] MEDS: ASPIRIN 81MG EC TABLET PO SCH (09:33)
[2019-07-19 09:46] LABS: PLATELET ESTIMATE NORMAL
[2019-07-19 12:00] VITALS: BP 156/72
[2019-07-19] MEDS: DEMECLOCYCLINE HCL 300MG TABLET PO SCH ×2 (13:09→20:50)
[2019-07-19] MEDS: ONDANSETRON HCL 4MG/2ML INJ IV PRN (14:31)
[2019-07-19 16:00] VITALS: BP 165/69
[2019-07-19] MEDS: CLONIDINE 0.1MG TABLET PO PRN (16:44)
[2019-07-19 18:00] VITALS: BP 148/73
[2019-07-19 20:00] VITALS: BP 120/66
[2019-07-20] VITALS: BP 135/62
[2019-07-20 04:00] VITALS: BP 132/69
[2019-07-20] MEDS: DEMECLOCYCLINE HCL 300MG TABLET PO SCH ×3 (06:16→21:33)
[2019-07-20] MEDS: BLOOD SUGAR DIAGNOSTIC STRIP TEST SCH ×4 (06:19→21:33)
[2019-07-20] MEDS: INSULIN LISPRO 100 UNITS/ML SUBCUT SCH ×4 (06:19→21:00)
[2019-07-20 07:49] LABS: BASOPHILS % 0.7 % (0.0-2.0); EOSINOPHILS % 13.7 % (0.0-5.0); HEMOGLOBIN. 12.3 g/dL (14.0-18.0); LYMPHOCYTES % 33.2 % (20.0-50.0); MEAN CORPUSCULAR HEMOGLOBIN 29.1 pg (28.0-32.0); MEAN CORPUSCULAR VOLUME 87.5 fL (80.0-94.0); MEAN PLATELET VOLUME 8.7 fl (7.4-10.4); MONOCYTES % 14.6 % (2.0-8.0); NEUTROPHILS % 37.8 % (40.0-76.0); PLATELET 140 x1000/uL (130-400); RED BLOOD CELL COUNT 4.23 mill/uL (4.7-6.1); RED CELL DISTRIBUTION WIDTH 16.4 % (11.6-14.6)
[2019-07-20 07:57] LABS: CHLORIDE 92 mEq/L (98-107)
[2019-07-20 08:04] LABS: PHOSPHORUS 3.7 mg/dL (2.5-4.9)
[2019-07-20 08:30] VITALS: BP 132/80
[2019-07-20] MEDS: ASPIRIN 81MG EC TABLET PO SCH (08:32)
[2019-07-20] MEDS: LISINOPRIL 20MG TABLET PO SCH (08:33)
[2019-07-20] MEDS: METOPROLOL TARTRATE 25MG TABLET PO SCH ×2 (08:33→21:33)
[2019-07-20 12:00] VITALS: BP 140/63
[2019-07-20 16:00] VITALS: BP 141/70
[2019-07-20 20:00] VITALS: BP 158/73
[2019-07-21] VITALS: BP 150/80
[2019-07-21 04:00] VITALS: BP 152/75
[2019-07-21 05:53] LABS: CHLORIDE 92 mEq/L (98-107)
[2019-07-21 06:13] LABS: HEMATOCRIT. 35.8 % (42.0-52.0); HEMOGLOBIN. 12.1 g/dL (14.0-18.0); MEAN CORPUSCULAR HEMOGLOBIN 29.6 pg (28.0-32.0); MEAN CORPUSCULAR VOLUME 87.8 fL (80.0-94.0); MEAN PLATELET VOLUME 8.5 fl (7.4-10.4); PLATELET 161 x1000/uL (130-400); RED BLOOD CELL COUNT 4.07 mill/uL (4.7-6.1); RED CELL DISTRIBUTION WIDTH 16.5 % (11.6-14.6)
[2019-07-21] MEDS: DEMECLOCYCLINE HCL 300MG TABLET PO SCH ×3 (06:18→22:17)
[2019-07-21] MEDS: BLOOD SUGAR DIAGNOSTIC STRIP TEST SCH ×4 (06:18→21:10)
[2019-07-21] MEDS: INSULIN LISPRO 100 UNITS/ML SUBCUT SCH ×4 (06:18→21:00)
[2019-07-21 08:00] VITALS: BP 157/73
[2019-07-21] MEDS: ASPIRIN 81MG EC TABLET PO SCH (08:27)
[2019-07-21] MEDS: LISINOPRIL 20MG TABLET PO SCH (08:27)
[2019-07-21] MEDS: METOPROLOL TARTRATE 25MG TABLET PO SCH ×2 (08:27→21:05)
[2019-07-21 12:00] VITALS: BP 152/66
[2019-07-21 14:00] LABS: PLATELET ESTIMATE NORMAL
[2019-07-21 16:00] VITALS: BP 145/68
[2019-07-21 20:00] VITALS: BP 140/65
[2019-07-22] VITALS: BP 141/68
[2019-07-22 04:00] VITALS: BP 125/74
[2019-07-22] MEDS: DEMECLOCYCLINE HCL 300MG TABLET PO SCH ×3 (06:27→21:06)
[2019-07-22] MEDS: INSULIN LISPRO 100 UNITS/ML SUBCUT SCH ×4 (06:29→20:58)
[2019-07-22] MEDS: BLOOD SUGAR DIAGNOSTIC STRIP TEST SCH ×4 (06:29→20:51)
[2019-07-22 06:44] LABS: BASOPHILS % 0.7 % (0.0-2.0); EOSINOPHILS % 9.5 % (0.0-5.0); HEMATOCRIT. 40.1 % (42.0-52.0); HEMOGLOBIN. 13.4 g/dL (14.0-18.0); LYMPHOCYTES % 17.8 % (20.0-50.0); MEAN CORPUSCULAR HEMOGLOBIN 29.8 pg (28.0-32.0); MEAN PLATELET VOLUME 8.9 fl (7.4-10.4); MONOCYTES % 10.3 % (2.0-8.0); NEUTROPHILS % 61.7 % (40.0-76.0); PLATELET 157 x1000/uL (130-400); RED BLOOD CELL COUNT 4.51 mill/uL (4.7-6.1); RED CELL DISTRIBUTION WIDTH 16.4 % (11.6-14.6)
[2019-07-22 06:49] LABS: CHLORIDE 95 mEq/L (98-107)
[2019-07-22 08:00] VITALS: BP 141/80
[2019-07-22] MEDS: ONDANSETRON HCL 4MG/2ML INJ IV PRN (09:54)
[2019-07-22] MEDS: LISINOPRIL 20MG TABLET PO SCH (09:55)
[2019-07-22] MEDS: METOPROLOL TARTRATE 25MG TABLET PO SCH ×2 (09:55→21:06)
[2019-07-22] MEDS: ASPIRIN 81MG EC TABLET PO SCH (09:55)
[2019-07-22 12:00] VITALS: BP 149/69
[2019-07-22 16:00] VITALS: BP 124/97
[2019-07-22 20:46] VITALS: BP 132/60
[2019-07-23] VITALS: BP 132/70
[2019-07-23 04:00] VITALS: BP 141/68
[2019-07-23] MEDS: BLOOD SUGAR DIAGNOSTIC STRIP TEST SCH ×2 (06:51→11:40)
[2019-07-23] MEDS: INSULIN LISPRO 100 UNITS/ML SUBCUT SCH ×2 (06:52→11:40)
[2019-07-23] MEDS: DEMECLOCYCLINE HCL 300MG TABLET PO SCH (06:54)
[2019-07-23 08:00] VITALS: BP 146/72
[2019-07-23] MEDS: ASPIRIN 81MG EC TABLET PO SCH (08:39)
[2019-07-23] MEDS: LISINOPRIL 20MG TABLET PO SCH (08:40)
[2019-07-23] MEDS: METOPROLOL TARTRATE 25MG TABLET PO SCH (08:40)
[2019-07-23 09:46] LABS: CHLORIDE 95 mEq/L (98-107)
[2019-07-23 11:02] VITALS: BP 146/72
== END 2019-07-23 12:13 | disposition home health service (06) | DRG 640 ==
LOC: ER 11:07 → 5EST 13:04 → EDBEDREQ 13:07 → EDBEDREQSVC 13:07 → ENRESERV 14:41 → 5WST 07-18 11:57
PROVIDERS: ADMIT Internal Medicine; ATTEND Internal Medicine
DX: E16.2 Hypoglycemia, unspecified (principal); G93.41 Metabolic encephalopathy; E87.1 Hypo-osmolality and hyponatremia; E46 Unspecified protein-calorie malnutrition; Z68.1 Body mass index [BMI] 19.9 or less, adult; E86.0 Dehydration; I11.0 Hypertensive heart disease with heart failure; I50.9 Heart failure, unspecified; E87.8 Other disorders of electrolyte and fluid balance, not elsewhere classified; D72.819 Decreased white blood cell count, unspecified; J44.9 Chronic obstructive pulmonary disease, unspecified; Z87.891 Personal history of nicotine dependence; Z79.899 Other long term (current) drug therapy; Z82.49 Family history of ischemic heart disease and other diseases of the circulatory system
CPT/HCPCS: 36415; 71045; 80048; 80061; 80305; 80320; 81003; 82140; 82533; 82550; 82962; 83036; 83735; 83880; 83930; 83935; 84100; 84300; 84439; 84443; 84484; 93005; 96374; 97116; 97162; 97530; 99291; J2405; J3475; J7030; J7070; G0480